=== PATIENT | female | born 1985 | race Caucasian/White ===

== ENCOUNTER → 2018-06-20 | Outpatient (CLI) | payer BC ==
--- NOTE | 2018-06-20 11:06 | US ---
EXAMINATION TYPE: US transvaginal DATE OF EXAM: 06/20/2018 COMPARISON: NONE CLINICAL HISTORY: N92.6 irregular periods. Pt states irregular menses TECHNIQUE: Transvaginal (TV). Transvaginal sonographic images of the pelvis were acquired. Date of LMP: 06/05/2018 EXAM MEASUREMENTS: Uterus: 8.0 x 4.1 x 4.6 cm Endometrial Stripe: 1.2 cm Right Ovary: 4.3 x 2.8 x 3.3 cm Left Ovary: 2.8 x 2.1 x 1.8 cm 1. Uterus: Anteverted wnl, Nabothian cyst in cervix 2. Endometrium: wnl 3. Right Ovary: Probable hemorrhagic cyst= 2.4 x 2.0 x 2.2 cm/ Follicle= 1.3 cm 4. Left Ovary: wnl 5. Bilateral Adnexa: wnl 6. Posterior cul-de-sac: wnl There is heterogeneous uterus with endometrium measuring up to 12 mm on current study, slightly thick ened for early secretory phase of menstrual cycle. No free fluid is seen in pelvic cul-de-sac. Incide ntal tiny nabothian cyst in cervix. Both ovaries are present. Right ovary is felt measured asymmetrically larger than it actually is. The re is 2.4 cm oval peripheral hypervascular hypoechoic lesion felt to reflect corpus luteal cyst from recent ovulation. There is 1.3 cm simple appearing cyst felt paraovarian in location IMPRESSION: Slight thickening of the endometrium for patient's LNMP.
== END | disposition home or self-care (01) ==
LOC: RADUSWWP 08:38
PROVIDERS: ATTEND Physician Assistant
DX: R93.89 Abnormal findings on diagnostic imaging of other specified body structures (principal)
CPT/HCPCS: 76830

== ENCOUNTER → 2018-07-16 | Outpatient (CLI) | payer BC ==
[2018-07-16 17:45] LABS: T4, Free (Free Thyroxine) 1.14 ng/dL (0.78-2.19)
--- NOTE | 2018-07-17 09:41 | USB ---
Reason for exam: clinical finding. History: Family history of breast cancer in paternal aunt at age 50. Physical Findings: Nurse Summary: left nipple inversion noted on exam, bilateral nodularity, all soft, movable (nurse ts). US Breast LT Left complete breast ultrasound includes all four quadrants, the retroareolar region and axilla. Finding demonstrates duct ectasia at the posterior nipple, no cystic or solid lesion seen. These results were verbally communicated with the patient and result sheet given to the patient on 07/16/18. ASSESSMENT: Benign, BI-RAD 2 RECOMMENDATION: Routine screening mammogram of both breasts at age 42. (or sooner if clinically indicated) Manage on a clinical basis with regard to white nipple discharge. Suspicious clear or bloody spontaneous discharge localized to a single pore on the nipple may warrant further evaluation.
== END | disposition home or self-care (01) ==
LOC: RADUSWWP 15:42
PROVIDERS: ATTEND Family Medicine
DX: N64.52 Nipple discharge (principal); E03.9 Hypothyroidism, unspecified
CPT/HCPCS: 84439; 84443

== ENCOUNTER → 2020-04-28 | Outpatient (CLI) | payer BC ==
--- NOTE | 2020-04-29 09:39 | US ---
EXAMINATION TYPE: US transvaginal DATE OF EXAM: 04/28/2020 COMPARISON: CLINICAL HISTORY: N83.209 Unspecified ovarian cyst. Generalized pelvic cramping. TECHNIQUE: Transvaginal (TV). Date of LMP: 04/24/2020, G0 EXAM MEASUREMENTS: Uterus: 7.0 x 3.7 x 3.2 cm Endometrial Stripe: 0.1 cm Right Ovary: 3.5 x 1.8 x 2.2 cm Left Ovary: 3.3 x 2.1 x 1.5 cm 1. Uterus: Anteverted Heterogenous in appearance with no prominent focal lesions identified. 2. Endometrium: No abnormality visualized 3. Right Ovary: Follicles seen. Dominant follicle visualized = 1.5 x 1.4 x 1.3 cm . This appears si mple. 4. Left Ovary: Follicles seen 5. Bilateral Adnexa: No abnormality visualized 6. Posterior cul-de-sac: No free fluid seen 7. Cervix: No abnormality visualized IMPRESSION: 1. Right ovarian cyst. Follow-up in 6 weeks can be performed.
== END | disposition home or self-care (01) ==
LOC: RADUSWWP 15:55
PROVIDERS: ATTEND Family Medicine
DX: N83.201 Unspecified ovarian cyst, right side (principal)
CPT/HCPCS: 76830

== ENCOUNTER → 2020-06-25 | Outpatient (CLI) | payer BC ==
--- NOTE | 2020-06-25 18:27 | US ---
EXAMINATION TYPE: US transvaginal DATE OF EXAM: 06/25/2020 COMPARISON: US CLINICAL HISTORY: N83.201 Cyst of right ovary. Followup ovarian cyst. TECHNIQUE: Transvaginal (TV). Transvaginal sonographic images were medically necessary to better ass ess the following anatomy: right ovary Date of LMP: approximately 05/26/2020 EXAM MEASUREMENTS: Uterus: 7.9 z 5.1 x 4.2 cm Endometrial Stripe: 1.7 cm Right Ovary: 3.7 x 2.9 x 3.1 cm Left Ovary: 3.2 x 1.9 x 2.5 cm 1. Uterus: Anteverted; couple of Nabothian Cysts seen in cervix with larger = 0.4 x 0.4 x 0.2cm 2. Endometrium: may be thick for normal range (7 to 14mm) for LMP approximately 30 days ago 3. Right Ovary: involuting cyst is noted = 1.4 x 1.2 x 1.2cm; simple follicular cyst also seen = 1.6 x 1.5 x 1.5cm with peripheral ring of color flow 4. Left Ovary: small follicles are seen; wnl Spectral, color and waveform Doppler imaging shows good arterial and venous flow within the ovaries ; there is no evidence for ovarian torsion. 5. Bilateral Adnexa: wnl 6. Posterior cul-de-sac: wnl IMPRESSION: 1. A Right ovarian cyst is again evident. Previous ovarian cyst may be involuting.
== END | disposition home or self-care (01) ==
LOC: RADUSWWP 16:43
PROVIDERS: ATTEND Family Medicine
DX: N83.201 Unspecified ovarian cyst, right side (principal)
CPT/HCPCS: 76830